=== PATIENT | male | born 1975 | race Native Hawaiian/Other Pacific Islander ===

== ENCOUNTER 2025-03-04 21:14 | Emergency (ER) | payer BC ==
[~2025-03-04] VITALS: Ht 182.9 cm; Wt 131.1 kg
[~2025-03-04 21:14] MED LIST: ATEN50 PO; CEPH500 PO; FLUO20 PO; HYDACE5 PO; METF500 PO; METF850 PO
[2025-03-04 21:20] VITALS: BP 151/87
[2025-03-04] MEDS ORDERED: CEPH500 PO (21:24)
[2025-03-04] MEDS ORDERED: BUPR150ER PO (21:42)
[2025-03-04] MEDS ORDERED: Lisinopril-Hct1 EAC4 PO (21:42)
[2025-03-04] MEDS ORDERED: ATORVASTATIN CA10 M1 PO (21:42)
[2025-03-04] MEDS ORDERED: ZOLPIDEM TARTRA10 MG PO (21:43)
== END 2025-03-04 21:28 | disposition home or self-care (01) ==
LOC: ER 21:14
DX: L03.113 Cellulitis of right upper limb (principal); S60.511A Abrasion of right hand, initial encounter; E11.9 Type 2 diabetes mellitus without complications; G47.30 Sleep apnea, unspecified; I10 Essential (primary) hypertension
CPT/HCPCS: 99283; A9270